=== PATIENT | female | born 1990 | race Caucasian/White ===

== ENCOUNTER 2016-11-06 13:32 | Emergency (ER) | payer OTHER, SELFPAY ==
[~2016-11-06] VITALS: Ht 152.4 cm; Wt 90.9 kg
[~2016-11-06 13:32] MED LIST: ROBA500T PO; WELLTAB40 PO
[2016-11-06] MEDS ORDERED: NS 1,000 ML IV ONE (15:15)
--- NOTE | 2016-11-06 16:22 | REP ---
PELVIC ULTRASOUND: Real-time sonographic evaluation of the pelvis was performed utilizing transabdominal and endovaginal technique. The bladder measures 6.7 x 5.1 x 6.8 cm. The uterus measures 8.2 x 4.0 x 5.0 cm. Endometrial thickness is 6 mm. The right ovary appears normal in size and echotexture measuring 2.8 x 1.7 x 2.1 cm. There is no ovarian torsion on the right with blood flow seen in the right ovary with duple Doppler evaluation. RI right ovary 0.48, left ovary could not be visualized due to adjacent bowel. There is no definite adnexal mass or free fluid. There is no definite adnexal mass or free fluid. IMPRESSION: Left ovary could not be visualized. No definite adnexal mass or free fluid. No evidence of torsion of the right ovary. Endometrial thickness 6 mm. Signed by Marck Velazquez MD 11/07/2016 05:35 P
[2016-11-06 17:21] LABS: BASO % 0.4 % (0.0-1.0); EOS # 0.1 K/mm3 (0.0-0.50); EOS % 1.4 % (0.0-3.0); LARGE UNSTAINED CELL # 0.1 K/mm3 (0.0-0.4); LARGE UNSTAINED CELL % 2.7 % (0.0-4.0); LYMPH % 38.3 % (24.0-44.0); MEAN CORPUSCULAR HEMOGLOBIN 30.3 pg (27.0-33.0); MEAN CORPUSCULAR HGB CONC 34.8 g/dl (32.0-36.5); MEAN CORPUSCULAR VOLUME 87.3 fl (80.0-96.0); MONO # 0.2 K/mm3 (0.0-0.8); MONO % 4.2 % (0.0-5.0); NEUTROPHILS # 2.7 K/mm3 (1.8-7.7); PLATELET COUNT, AUTOMATED 214 k/mm3 (150-450); RED CELL DISTRIBUTION WIDTH 13.7 % (11.5-14.5); WHITE BLOOD COUNT 5.1 K/mm3 (4.0-10.0)
[2016-11-06 17:27] LABS: ALBUMIN 3.7 GM/DL (3.2-5.2); ALBUMIN/GLOBULIN RATIO 0.97 (1.00-1.93); ALKALINE PHOSPHATASE 69 U/L (45-117); ALT/SGPT 66 U/L (12-78); ANION GAP 10 MEQ/L (8-16); AST/SGOT 37 U/L (15-37); BILIRUBIN,DIRECT < 0.1 MG/DL (0.0-0.2); BILIRUBIN,TOTAL 0.3 MG/DL (0.2-1.0); BLOOD UREA NITROGEN 10 MG/DL (7-18); CALCIUM LEVEL 8.9 MG/DL (8.5-10.1); CARBON DIOXIDE LEVEL 24 MEQ/L (21-32); CHLORIDE LEVEL 107 MEQ/L (98-107); CREATININE FOR GFR 0.59 MG/DL (0.55-1.02); GLOMERULAR FILTRATION RATE > 60.0 (>60); GLUCOSE, FASTING 73 MG/DL (70-105); POTASSIUM SERUM 3.9 MEQ/L (3.5-5.1); SODIUM LEVEL 141 MEQ/L (136-145); TOTAL PROTEIN 7.5 GM/DL (6.4-8.2)
[2016-11-06 18:01] VITALS: BP 134/92
== END 2016-11-06 18:05 | disposition home or self-care (01) ==
LOC: M ED 13:32
DX: N93.9 Abnormal uterine and vaginal bleeding, unspecified (principal); R19.5 Other fecal abnormalities; Z86.19 Personal history of other infectious and parasitic diseases; Z87.442 Personal history of urinary calculi; F32.9 Major depressive disorder, single episode, unspecified; M54.9 Dorsalgia, unspecified; F17.200 Nicotine dependence, unspecified, uncomplicated; F12.10 Cannabis abuse, uncomplicated; J30.2 Other seasonal allergic rhinitis

== ENCOUNTER 2016-11-30 14:28 | Emergency (ER) | payer OTHER, SELFPAY ==
[~2016-11-30] VITALS: Ht 165.1 cm; Wt 90.9 kg
[2016-11-30] MEDS ORDERED: ALBUTEROL SULFATE 2.5 MG/0.5 ML INH NEB SOLN NEB ONE (16:00)
--- NOTE | 2016-11-30 16:29 | REP ---
Chest x-ray: Two views. History: Cough and wheezing . Comparison study: October 28, 2009 . Findings: The lungs are well inflated and free of infiltrate. The pleural angles are sharp. The heart size is normal. Pulmonary vasculature is not increased. No significant bony abnormality is seen. Impression: Negative chest x-ray. Signed by Chris Yao MD 11/30/2016 04:21 P
[2016-11-30] MEDS ORDERED: AMOX500C PO (16:40)
[2016-11-30] MEDS ORDERED: VENTAER INH (16:41)
[2016-11-30 16:48] VITALS: BP 131/73
== END 2016-11-30 16:49 | disposition home or self-care (01) ==
LOC: M ED 14:28
DX: J98.01 Acute bronchospasm (principal); J02.0 Streptococcal pharyngitis; Z87.442 Personal history of urinary calculi; M54.9 Dorsalgia, unspecified; J30.2 Other seasonal allergic rhinitis; F32.9 Major depressive disorder, single episode, unspecified; F17.200 Nicotine dependence, unspecified, uncomplicated; F12.10 Cannabis abuse, uncomplicated

== ENCOUNTER 2016-12-07 13:01 | Emergency (ER) | payer OTHER, SELFPAY ==
[~2016-12-07] VITALS: Ht 165.1 cm; Wt 90.9 kg
[~2016-12-07 13:01] MED LIST changes: +AMOX500C PO; +VENTAER INH
[2016-12-07] MEDS ORDERED: IPRATROPIUM 0.5MG/ALBUTEROL 2.5MG INH SOL UD 3ML (DUONEB)(J7620) NEB ONE ×2 (18:45→20:30)
[2016-12-07] MEDS ORDERED: NS 500 ML IV ONE (18:45)
[2016-12-07] MEDS ORDERED: ONDANSETRON 4MG/2ML VIAL (J2405) IV ONE (18:45)
[2016-12-07] MEDS ORDERED: methylPREDNISolone INJ 125 MG/2 ML VIAL (J2930) IV ONE (18:45)
[2016-12-07 19:07] LABS: BASO % 0.2 % (0.0-1.0); EOS # 0.1 10^3/uL (0.0-0.50); EOS % 2.1 % (0.0-3.0); IMMATURE GRANULOCYTE % 0.2 % (0-0); LYMPH # 2.5 10^3/uL (1.5-6.5); LYMPH % 44.1 % (24.0-44.0); MEAN CORPUSCULAR HEMOGLOBIN 28.9 pg (27.0-33.0); MEAN CORPUSCULAR HGB CONC 32.8 g/dl (32.0-36.5); MEAN CORPUSCULAR VOLUME 88.2 fl (80.0-96.0); MONO # 0.5 10^3/uL (0.0-0.8); MONO % 8.6 % (0.0-5.0); NEUTROPHILS # 2.5 10^3/uL (1.8-7.7); NEUTROPHILS % 44.8 % (36.0-66.0); PLATELET COUNT, AUTOMATED 238 10^3/uL (150-450); RED CELL DISTRIBUTION WIDTH 13.9 % (11.5-14.5); WHITE BLOOD COUNT 5.7 10^3/uL (4.0-10.0)
[2016-12-07] MEDS ORDERED: KETOROLAC 30 MG/ML VIAL (J1885) IV ONE (20:30)
[2016-12-07] MEDS ORDERED: ONDANSETRON 4 MG ORAL DISINTEGRATING TAB (S0181) PO ONE (20:30)
[2016-12-07] MEDS ORDERED: DOXYCYCLINE HYCLATE 100 MG in D5W MINI-BAG PLUS 100 ML IV ONE (20:30)
[2016-12-07 20:43] LABS: ANION GAP 9 MEQ/L (8-16); BLOOD UREA NITROGEN 8 MG/DL (7-18); CALCIUM LEVEL 8.8 MG/DL (8.5-10.1); CARBON DIOXIDE LEVEL 23 MEQ/L (21-32); CHLORIDE LEVEL 110 MEQ/L (98-107); CREATININE FOR GFR 0.67 MG/DL (0.55-1.02); GLOMERULAR FILTRATION RATE > 60.0 (>60); GLUCOSE, FASTING 78 MG/DL (70-105); POTASSIUM SERUM 3.8 MEQ/L (3.5-5.1); SODIUM LEVEL 142 MEQ/L (136-145)
[2016-12-07] MEDS ORDERED: DOXY100C37 PO (21:08)
[2016-12-07] MEDS ORDERED: PRED20TA PO (21:09)
[2016-12-07 21:49] VITALS: BP 130/77
--- NOTE | 2016-12-08 08:10 | ECGEPIP ---
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
--- NOTE | 2016-12-08 09:17 | REP ---
PA and lateral chest: Comparison is 11/30/2016. The lung avila are clear. The cardiac size is normal The lazaro, mediastinum, and bony thorax are unremarkable. Impression: Negative PA and lateral chest. There is no interval change. No Signed by Marck Osullivan MD 12/08/2016 08:30 A
== END 2016-12-07 21:50 | disposition home or self-care (01) ==
LOC: M ED 13:01
DX: J45.909 Unspecified asthma, uncomplicated (principal); J18.9 Pneumonia, unspecified organism; N28.9 Disorder of kidney and ureter, unspecified; M54.9 Dorsalgia, unspecified; F32.9 Major depressive disorder, single episode, unspecified; F17.200 Nicotine dependence, unspecified, uncomplicated; F12.10 Cannabis abuse, uncomplicated
CPT/HCPCS: 71020; 80048; 85025; 93000; 94640; 96361; 96365; 96375; 99284; J1885; J2405; J2930

== ENCOUNTER 2019-05-29 17:15 | Emergency (ER) | payer OTHER ==
[~2019-05-29] VITALS: Ht 154.9 cm; Wt 90.9 kg
[~2019-05-29 17:15] MED LIST changes: +DOXY100C37 PO; +PRED20TA PO
[2019-05-29] MEDS ORDERED: IBUPROFEN 600 MG TAB PO ONE (17:45)
[2019-05-29] MEDS ORDERED: LIDOCAINE 4% CREAM 5GM (LMX4) TOP ONE (17:45)
[2019-05-29] MEDS ORDERED: ALBUTEROL 90 MCG/ACT 8GM HFA INHALER INH ONE (17:45)
[2019-05-29 18:56] VITALS: BP 111/74
[2019-05-29] MEDS ORDERED: IBUP-1022 PO (18:56)
[2019-05-29] MEDS ORDERED: ROBA750T4 PO (18:56)
[2019-05-29] MEDS ORDERED: ANEC4CRE3 TOP (18:56)
[2019-05-29] MEDS ORDERED: PROAAER10 INH (19:05)
--- NOTE | 2019-05-30 08:47 | REP ---
RIGHT RIB SERIES AND TWO-VIEW CHEST: FINDINGS: Five views of the ribs show no acute fracture or destructive osseous lesion. The accompanying frontal view of the chest shows no cardiomegaly, infiltrates, effusions or pneumothoraces. IMPRESSION: Negative rib series. TWO-VIEW CHEST: COMPARISON: No priors. FINDINGS: The superior mediastinal structures are midline. The cardiac silhouette is unremarkable in size, shape, and position. The diaphragmatic surfaces of the lungs are regular, and the costophrenic angles are clear. The pulmonary avila are clear. The imaged osseous structures are intact. IMPRESSION: There is no acute cardiopulmonary disease. Electronically Signed by Charanjit Davis DO 05/30/2019 08:49 A
== END 2019-05-29 19:12 | disposition home or self-care (01) ==
LOC: M ED 17:15
DX: S29.011A Strain of muscle and tendon of front wall of thorax, initial encounter (principal); R05 Cough; X58.XXXA Exposure to other specified factors, initial encounter; K21.9 Gastro-esophageal reflux disease without esophagitis; F12.10 Cannabis abuse, uncomplicated; Z79.899 Other long term (current) drug therapy

== ENCOUNTER 2019-08-26 13:35 | Emergency (ER) | payer OTHER ==
[~2019-08-26] VITALS: Ht 157.5 cm; Wt 93.8 kg
[~2019-08-26 13:35] MED LIST changes: +ANEC4CRE3 TOP; +IBUP-1022 PO; +PROAAER10 INH; +ROBA750T4 PO
[2019-08-26] MEDS ORDERED: MIRTAZAPINE (13:44)
[2019-08-26] MEDS ORDERED: NALT50TA4 PO (13:44)
[2019-08-26] MEDS ORDERED: BUSP15TA47 (13:44)
[2019-08-26] MEDS ORDERED: CLON0.2T (13:44)
[2019-08-26] MEDS ORDERED: BUPR300T92 (13:44)
[2019-08-26 16:07] LABS: BASO % 0.3 % (0.0-1.0); EOS # 0.1 10^3/uL (0.0-0.5); EOS % 1.2 % (0.0-3.0); HEMATOCRIT 38.8 % (36.0-47.0); HEMOGLOBIN 12.6 g/dl (12.0-15.5); LYMPH # 2.2 10^3/uL (1.5-5.0); LYMPH % 29.4 % (24.0-44.0); MEAN CORPUSCULAR HGB CONC 32.5 g/dl (32.0-36.5); MEAN CORPUSCULAR VOLUME 89.4 fl (80.0-96.0); MONO # 0.5 10^3/uL (0.0-0.8); MONO % 6.6 % (0.0-5.0); NEUTROPHILS # 4.6 10^3/uL (1.5-8.5); NEUTROPHILS % 62.2 % (36.0-66.0); PLATELET COUNT, AUTOMATED 250 10^3/uL (150-450); RED BLOOD COUNT 4.34 10^6/uL (4.00-5.40); WHITE BLOOD COUNT 7.4 10^3/uL (4.0-10.0)
[2019-08-26 17:07] VITALS: BP 136/87
--- NOTE | 2019-08-26 22:50 | REP ---
RIGHT KNEE, FIVE VIEWS: There is no evidence of an acute fracture, dislocation, or intrinsic bone disease. IMPRESSION: No fracture or dislocation. Electronically Signed by Marck Velazquez MD 08/29/2019 10:35 P
--- NOTE | 2019-08-27 00:26 | REP ---
HIP: REASON: Atraumatic pain. FINDINGS: The hip joint space is symmetric and relatively well maintained. There is no acute fracture or destructive osseous lesion. Edited: alexis 08/27/2019 1227 Electronically Signed by Charanjit Davis DO 08/27/2019 08:55 A
--- NOTE | 2019-08-27 02:02 | REP ---
DEEP VENOUS ULTRASONOGRAPHY RIGHT THIGH, RULE OUT DVT: REASON FOR EXAM: Pain and swelling. TECHNIQUE: Multiple ultrasonographic images of the deep venous structures of the thigh were obtained from the common femoral vein to the popliteal vein along with Doppler interrogation and color flow Doppler images. FINDINGS: There is no abnormal echogenic material seen within any of the visualized deep venous structures that would suggest acute thrombosis. Coaptation is unremarkable throughout. Doppler interrogation shows an expected response to respiratory variability and augmentation. The color flow images show what appears to be a normal vascular pattern throughout. IMPRESSION: There is no ultrasonographic evidence of deep venous thrombosis involving any of the visualized deep venous structures of the right thigh, as described above. Electronically Signed by Charanjit Davis DO 08/27/2019 08:56 A
== END 2019-08-26 17:10 | disposition home or self-care (01) ==
LOC: M ED 13:35
DX: M25.551 Pain in right hip (principal); M25.561 Pain in right knee; F12.90 Cannabis use, unspecified, uncomplicated; F31.9 Bipolar disorder, unspecified; F41.9 Anxiety disorder, unspecified; F90.9 Attention-deficit hyperactivity disorder, unspecified type; Z79.899 Other long term (current) drug therapy; Z86.718 Personal history of other venous thrombosis and embolism; Z87.442 Personal history of urinary calculi

== ENCOUNTER → 2019-12-06 | Outpatient (CLI) | payer OTHER ==
[~2019-12-06] MED LIST changes: +ACET-907 PO; +BUPR300T92; +BUSP15TA47; +CLON0.2T; +DICL1GEL3 TOP; +MIRTAZAPINE; +NALT50TA4 PO; +PROZ40CA PO; +TRAZ-186 PO
--- NOTE | 2019-12-07 10:11 | REP ---
INDICATION: INTERNAL DERANGEMENT RT KNEE. Pain since August especially going up stairs. COMPARISON: Radiographs 08/26/2019. TECHNIQUE: Multiple sequences obtained in the axial, coronal and sagittal planes. FINDINGS: The study is somewhat limited due to patient motion. The menisci are intact with no evidence of a tear. The cruciate and collateral ligaments are intact. The extensor mechanism is intact. The medial and lateral patellar retinacula are intact. Mild to moderate chondromalacia anteriorly the medial femoral condyle in the region of the intercondylar notch. There is mild chondromalacia diffusely of the patella. No osteochondral defect is seen. There is no bone marrow edema or occult fracture. There is a small joint effusion. No popliteal cyst is seen. 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 No evidence of internal derangement. Small joint effusion. <Electronically signed by Marck Velazquez > 12/07/19 1007
== END ==
LOC: M RAD 17:35
PROVIDERS: ATTEND Internal Medicine
DX: M23.91 Unspecified internal derangement of right knee (principal)

== ENCOUNTER → 2019-12-06 | Outpatient (CLI) | payer OTHER ==
[2019-12-06 18:56] LABS: C REACTIVE PROTEIN QUANTITATIV 0.31 MG/DL (0.00-0.30); RHEUMATOID FACTOR QUANT < 10.0 IU/ML (<15.0)
[2019-12-08 12:48] LABS: DRVV SCREEN 39.6 SEC
[2019-12-09 07:07] LABS: ANA (HEP2) Negative (.); BETA-2 GLYCOPROTEIN I ABY IGA 19 (0-25); BETA-2 GLYCOPROTEIN I ABY IGG <9 (0-20); BETA-2 GLYCOPROTEIN I ABY IGM <9 (0-32); CARDIOLIPIN IGA ANTIBODY <9 APL U/mL (0-11); CARDIOLIPIN IGG ANTIBODY <9 GPL U/mL (0-14); CARDIOLIPIN IGM ANTIBODY 37 MPL U/mL (0-12); CYCLIC CITRULLINATED PEPTIDE 5 units (0-19)
== END ==
LOC: M LAB 17:15
PROVIDERS: ATTEND Internal Medicine
DX: N96 Recurrent pregnancy loss (principal); L65.9 Nonscarring hair loss, unspecified; M25.40 Effusion, unspecified joint

== ENCOUNTER 2019-12-19 12:25 | Emergency (ER) | payer OTHER ==
[~2019-12-19] VITALS: Ht 152.4 cm; Wt 97.1 kg
[2019-12-19 12:25] VITALS: BP 123/56
[~2019-12-19 12:25] MED LIST changes: -ACET-907 PO; -DICL1GEL3 TOP; -PROZ40CA PO; -TRAZ-186 PO
[2019-12-19] MEDS ORDERED: TRAZ-186 PO (12:31)
[2019-12-19] MEDS ORDERED: PROZ40CA PO (12:31)
[2019-12-19] MEDS ORDERED: ACET-907 PO (12:31)
[2019-12-19] MEDS ORDERED: DICL1GEL3 TOP (12:31)
--- NOTE | 2019-12-19 13:57 | REP ---
INDICATION: trauma, lateral pain. COMPARISON: Comparison right ankle radiographs are from October 10, 2014.. TECHNIQUE: Four views. FINDINGS: Four views of the right ankle demonstrate a well corticated accessory ossicle adjacent to the fibular tip which is unchanged from the 2015 prior radiographs. It is not acute. Ankle mortise is intact. No acute fracture or subluxation is seen. IMPRESSION: No acute fracture or subluxation seen. Old well corticated accessory ossicle adjacent to the fibular tip unchanged from the 2015 prior radiographs. <Electronically signed by Jaret Yao > 12/19/19 [id number]
--- NOTE | 2019-12-19 13:58 | REP ---
INDICATION: trauma, frontal pain. COMPARISON: Comparison radiographs of the right knee are from August 26, 2019.. TECHNIQUE: Five views. FINDINGS: Five views of the right knee demonstrate normal bones, joints, and soft tissues. No fracture or subluxation is seen. No opaque foreign body noted. IMPRESSION: Negative right knee series. <Electronically signed by Jaret Yao > 12/19/19 [id number]
== END 2019-12-19 14:13 | disposition home or self-care (01) ==
LOC: M ED 12:25
DX: S80.01XA Contusion of right knee, initial encounter (principal); S83.91XA Sprain of unspecified site of right knee, initial encounter; W10.8XXA Fall (on) (from) other stairs and steps, initial encounter; Y92.9 Unspecified place or not applicable; Y93.9 Activity, unspecified; Y99.9 Unspecified external cause status; K21.9 Gastro-esophageal reflux disease without esophagitis; F31.9 Bipolar disorder, unspecified; F90.9 Attention-deficit hyperactivity disorder, unspecified type; Z79.899 Other long term (current) drug therapy

== ENCOUNTER → 2019-12-23 | Outpatient (CLI) | payer OTHER ==
[~2019-12-23] MED LIST changes: +ACET-907 PO; +DICL1GEL3 TOP; +PROZ40CA PO; +TRAZ-186 PO
[2019-12-23 13:16] LABS: BASO % 0.4 % (0.0-1.0); EOS # 0.2 10^3/uL (0.0-0.5); EOS % 3.7 % (0.0-3.0); HEMATOCRIT 36.5 % (36.0-47.0); HEMOGLOBIN 11.2 g/dl (12.0-15.5); LYMPH # 1.9 10^3/uL (1.5-5.0); LYMPH % 35.4 % (24.0-44.0); MEAN CORPUSCULAR HEMOGLOBIN 28.1 pg (27.0-33.0); MEAN CORPUSCULAR HGB CONC 30.7 g/dl (32.0-36.5); MEAN CORPUSCULAR VOLUME 91.7 fl (80.0-96.0); MONO # 0.5 10^3/uL (0.0-0.8); MONO % 8.5 % (0.0-5.0); NEUTROPHILS # 2.8 10^3/uL (1.5-8.5); NEUTROPHILS % 51.6 % (36.0-66.0); PLATELET COUNT, AUTOMATED 267 10^3/uL (150-450); RED BLOOD COUNT 3.98 10^6/uL (4.00-5.40); WHITE BLOOD COUNT 5.4 10^3/uL (4.0-10.0)
[2019-12-23 13:21] LABS: APPEARANCE, URINE CLEAR (CLEAR); BACTERIA, URINE AUTO NEGATIVE (NEGATIVE); BILIRUBIN, URINE AUTO NEGATIVE (NEGATIVE); BLOOD, URINE BLOOD NEGATIVE (NEGATIVE); COLOR, URINE STRAW (YELLOW); GLUCOSE, URINE (UA) AUTO NEGATIVE (NEGATIVE); KETONE, URINE AUTO NEGATIVE (NEGATIVE); LEUKOCYTE ESTERASE, URINE AUTO NEGATIVE (NEGATIVE); NITRITE, URINE AUTO NEGATIVE (NEGATIVE); PROTEIN, URINE AUTO NEGATIVE (NEGATIVE); RBC, URINE AUTO 0 /HPF (0-3); SPECIFIC GRAVITY URINE AUTO 1.006 (1.002-1.035); SQUAMOUS EPITHELIAL CELL UR AU 3 /HPF (0-6); UROBILINOGEN, URINE AUTO 0.2 mg/dL (0.0-2.0); WBC, URINE AUTO 0 /HPF (0-3)
[2019-12-23 13:40] LABS: COMPLEMENT C3 119 MG/DL (90-180); COMPLEMENT C4 26 MG/DL (10-40)
[2019-12-23 13:43] LABS: CREATININE,RANDOM URINE 23.8 MG/DL; TOTAL PROTEIN,RANDOM URINE < 5.0 MG/DL (0.0-12.0)
[2019-12-28 12:08] LABS: ANTI CENTROMERE ANTIBODY <0.2 AI (0.0-0.9); ANTI DS-DNA AB Negative (Negative); ANTI SCLERODERMA ANTIBODIES <0.2 AI (0.0-0.9); ANTI-HISTONE ANTIBODIES 0.8 Units (0.0-0.9); COMPLEMENT TOTAL (CH50) 60 U/mL (>41); RNP ANTIBODY < 0.2 AI (0.0-0.9); SMITHS ANTIBODY < 0.2 AI (0.0-0.9); SSA SJOGRENS A <0.2 AI (0.0-0.9); SSB SJOGRENS B 0.2 AI (0.0-0.9)
== END ==
LOC: M LAB 11:16
PROVIDERS: ATTEND Internal Medicine
DX: M06.4 Inflammatory polyarthropathy (principal)

== ENCOUNTER → 2020-01-17 | Outpatient (REF) | payer OTHER ==
[2020-01-17 10:51] LABS: URINE PREG TEST NEGATIVE (NEGATIVE)
== END ==
LOC: M LAB REF 10:34
PROVIDERS: ATTEND Physician Assistant Medical
DX: N91.2 Amenorrhea, unspecified (principal)

== ENCOUNTER → 2020-01-19 | Outpatient (REF) | payer OTHER | LOC: M SFHCPLAZ 17:15 | PROVIDERS: ATTEND Physician Assistant | DX: N92.1 Excessive and frequent menstruation with irregular cycle (principal) ==

== ENCOUNTER 2020-02-03 16:51 | Emergency (ER) | payer OTHER ==
[~2020-02-03] VITALS: Ht 154.9 cm; Wt 100.0 kg
[~2020-02-03 16:51] MED LIST changes: -CELE1CAP7; -KETO10TAB PO; -OLAN15TA
[2020-02-03] MEDS ORDERED: BUSP15TA47 (17:04)
[2020-02-03] MEDS ORDERED: CELE1CAP7 (17:04)
[2020-02-03] MEDS ORDERED: OLAN15TA (17:04)
--- NOTE | 2020-02-03 17:09 | REP ---
INDICATION: chest pain r/o pneumothorax. COMPARISON: Comparison chest x-ray May. TECHNIQUE: Portable upright AP chest radiograph. FINDINGS: The lungs are well inflated and free of infiltrate. Pleural angles are sharp. Heart size is normal. Pulmonary vasculature is not increased. IMPRESSION: No active disease. <Electronically signed by Jaret Yao > 02/03/20 [id number]
[2020-02-03] MEDS ORDERED: KETOROLAC 30 MG/ML 1ML VIAL IV ONE (17:15)
[2020-02-03] MEDS ORDERED: MORPHINE 2 MG/ML 1ML VIAL (J2270) IV PRN (17:15)
[2020-02-03 17:48] LABS: BLOOD UREA NITROGEN 10 MG/DL (7-18); CALCIUM LEVEL 8.3 MG/DL (8.5-10.1); CARBON DIOXIDE LEVEL 27 MEQ/L (21-32); CHLORIDE LEVEL 106 MEQ/L (98-107); CREATININE FOR GFR 0.68 MG/DL (0.55-1.30); GLOMERULAR FILTRATION RATE > 60.0 (>60); GLUCOSE, FASTING 97 MG/DL (70-100); POTASSIUM SERUM 3.2 MEQ/L (3.5-5.1); SODIUM LEVEL 136 MEQ/L (136-145)
[2020-02-03 18:12] LABS: HEMATOCRIT 35.6 % (36.0-47.0); HEMOGLOBIN 10.9 g/dl (12.0-15.5); MEAN CORPUSCULAR HEMOGLOBIN 27.3 pg (27.0-33.0); MEAN CORPUSCULAR HGB CONC 30.6 g/dl (32.0-36.5); PLATELET COUNT, AUTOMATED 271 10^3/uL (150-450); WHITE BLOOD COUNT 9.2 10^3/uL (4.0-10.0)
[2020-02-03] MEDS ORDERED: KETO10TAB PO (19:39)
[2020-02-03] MEDS ORDERED: OXYCODONE/APAP 5MG/325MG(BULK FOR ED) 1 TABLET PO ONE (19:45)
--- NOTE | 2020-02-03 20:22 | REPVR ---
PROCEDURE INFORMATION: Exam: CT Chest Without Contrast; Diagnostic Exam date and time: 02/03/2020 6:03 PM Age: 30 years old Clinical indication: Pain; Other: Rib; Additional info: Rib pain R/O fracture TECHNIQUE: Imaging protocol: Diagnostic computed tomography of the chest without contrast. 3D rendering (Not supervised by radiologist): MIP and/or 3D reconstructed images were created by the technologist. Radiation optimization: All CT scans at this facility use at least one of these dose optimization techniques: automated exposure control; mA and/or kV adjustment per patient size (includes targeted exams where dose is matched to clinical indication); or iterative reconstruction. COMPARISON: [facility] PORTABLE CHEST X-RAY 02/03/2020 5:02 PM FINDINGS: Lungs: Minimal atelectatic changes are identified within both lower lobes of the lungs. Otherwise, there is no confluent infiltrate. No lung mass or dominant lung nodule. Pleural space: No pneumothorax. No pleural effusion. Heart: No cardiomegaly. Aorta: There is a limited evaluation of organ/aortic injury due to the absence of intravenous contrast administration. Artifact limits evaluation of the ascending aorta. No aneurysmal dilatation of the thoracic aorta otherwise visualized. Lymph nodes: A small pretracheal mediastinal lymph node is identified, without significant lymphadenopathy.Evaluation for hilar lymph nodes is limited by the absence of intravenous contrast. Gallbladder and bile ducts: Surgical clips are identified within the gallbladder fossa, compatible with cholecystectomy. Bones/joints: There is a subcentimeter nonspecific sclerotic lesion within the left humeral head. Mild degenerative changes are visualized within the thoracic spine. There is an old fracture of the right 9th rib in the mid-axillary line. No visualized acute rib fracture. Soft tissues: Unremarkable. IMPRESSION: 1. There is an old fracture of the right 9th rib. No visualized acute rib fracture. 2. Minimal atelectatic changes are identified within both lower lobes of the lungs. 3. Additional findings described above. Electronically signed by: Edmund Duggan On 02/03/2020 20:21:42 PM
[2020-02-03 20:40] VITALS: BP 138/71
== END 2020-02-03 21:43 | disposition home or self-care (01) ==
LOC: EDBD 16:51 → M ED 16:51
DX: R07.89 Other chest pain (principal); F33.9 Major depressive disorder, recurrent, unspecified; F41.9 Anxiety disorder, unspecified; Z87.891 Personal history of nicotine dependence; Z79.899 Other long term (current) drug therapy
CPT/HCPCS: 71045; 71250; 80048; 85027; 96374; 96375; 99284; J1885; J2270

== ENCOUNTER → 2020-02-03 | Outpatient (CLI) | payer OTHER ==
[~2020-02-03] MED LIST changes: +CELE1CAP7; +KETO10TAB PO; +OLAN15TA
--- NOTE | 2020-02-14 15:14 | SLEEPHOME ---
DATE: 02/03/2020 ORDERED BY: Viry Martinez MD Diagnostic home sleep testing was performed due to concern for the obstructive sleep apnea syndrome. For testing, a nocturnal T3 respiratory monitoring device was used. Continuous record was made of pulse, oxygen saturation, air flow, chest and abdominal strain, and body position. Eleven hours and 58 minutes of data were reviewed. There were 9 hours and 23 minutes marked as time in bed. During the interval marked time in bed, there were 82 respiratory events identified of 10 seconds in duration or greater for a respiratory event index of 8.7 per hour. The events were obstructive, a few mixed and central apneas were also noted. Baseline pulse rate was 73 beats per minute. Pulse rate ranged 55 and 96. Baseline saturation was 93%. Saturations fell to 87% and testing was performed in both the supine and nonsupine positions. IMPRESSION: Abnormal home sleep testing with repetitive respiratory events and oxygen desaturations to 87% and a respiratory event index of 8.7 is consistent with the obstructive sleep apnea syndrome. RECOMMENDATION: Referral for a formal sleep evaluation is recommended.
== END ==
LOC: M SLEEP HO 12:18
PROVIDERS: ATTEND Internal Medicine
DX: G47.9 Sleep disorder, unspecified (principal)

== ENCOUNTER 2020-11-18 10:30 | Emergency (ER) | payer OTHER ==
[~2020-11-18] VITALS: Ht 154.9 cm; Wt 89.2 kg
[~2020-11-18 10:30] MED LIST changes: +CELE1CAP7; -DOXY100C37 PO; +DOXY1CAP62 PO; +KETO10TAB PO; +OLAN15TA13
[2020-11-18] MEDS ORDERED: BUSP10TA (10:37)
[2020-11-18] MEDS ORDERED: IBUPROFEN 600MG TAB PO ONE (12:20)
[2020-11-18] MEDS ORDERED: predniSONE 20 MG TAB PO ONE (12:20)
[2020-11-18] MEDS: COMBIVENT RESPIMAT 100-20MCG INHALER 4GM INH SCH ×3 (12:23→12:43)
--- NOTE | 2020-11-18 12:59 | REP ---
INDICATION: DYSPNEA/COUGH. COMPARISON: Comparison chest x-ray February 03, 2020. TECHNIQUE: Two views.. FINDINGS: The lungs are well inflated and free of infiltrate. The pleural angles are sharp. The heart size is normal. Pulmonary vasculature is not increased. No significant bony abnormality is seen. There is an old healed rib fracture involving the posterolateral segment of the right 5th rib. IMPRESSION: No active disease. <Electronically signed by Jaret Yao > 11/18/20 [id number]
[2020-11-18] MEDS ORDERED: PROAAER10 INH (13:26)
[2020-11-18] MEDS ORDERED: PRED20TA PO (13:26)
[2020-11-18 13:33] VITALS: BP 138/64
--- NOTE | 2020-11-19 05:37 | ECGEPIP ---
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
== END 2020-11-18 13:41 | disposition home or self-care (01) ==
LOC: M ED 10:30
DX: J45.901 Unspecified asthma with (acute) exacerbation (principal); J06.9 Acute upper respiratory infection, unspecified; I45.81 Long QT syndrome; R10.30 Lower abdominal pain, unspecified; Z87.442 Personal history of urinary calculi; K21.9 Gastro-esophageal reflux disease without esophagitis; M54.50 Low back pain, unspecified; F31.9 Bipolar disorder, unspecified; F90.9 Attention-deficit hyperactivity disorder, unspecified type; F17.200 Nicotine dependence, unspecified, uncomplicated; Z88.8 Allergy status to other drugs, medicaments and biological substances; Z79.899 Other long term (current) drug therapy
CPT/HCPCS: 71046; 93005; 94640; 99284; J7512

== ENCOUNTER 2022-05-15 20:30 | Emergency (ER) | payer MEDICAID, MEDICARE, OTHER ==
[~2022-05-15] VITALS: Ht 154.9 cm; Wt 84.6 kg
[~2022-05-15 20:30] MED LIST changes: +BUSP10TA; +DOXY-443 PO; -DOXY1CAP62 PO
[2022-05-15 20:32] VITALS: BP 120/65
== END 2022-05-15 21:15 | disposition left against medical advice (07) ==
LOC: M ED 20:30
DX: Z53.21 Procedure and treatment not carried out due to patient leaving prior to being seen by health care provider (principal)